=== PATIENT | female | born 2000 | race Caucasian/White ===

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

== ENCOUNTER 2019-04-06 17:49 | Emergency (ER) | payer BC, OTHER ==
[2019-04-06] MEDS: IPRATROPIUM (NEB) 0.5 MG/2.5 ML AMP NEB ×2 (19:36→19:42)
[2019-04-06] MEDS: LEVALBUTEROL (NEB) 1.25 MG/0.5 ML AMP INH ×2 (19:36→19:42)
[2019-04-06] MEDS: predniSONE 50 MG TAB PO (19:50)
== END 2019-04-06 20:21 | disposition home or self-care (01) ==
LOC: FTE 17:49
DX: J45.901 Unspecified asthma with (acute) exacerbation (principal)
CPT/HCPCS: 94664; 99283-25